=== PATIENT | female | born 1975 | race Caucasian/White ===

== ENCOUNTER 2016-11-03 17:48 | Emergency (ER) | payer OTHER ==
--- NOTE | ~2016-11-03 | CT98 ---
[facility] A Service of [facility] & [facility] RADIOLOGY TEXT RESULTS PATIENT: YINKA HARDING LOCATION: SED : 71 UNIT #: [id number] AGE: [address]: Yamilex Oseguera SEX: F ORDER DR: [id number] [address] [address] [id number] MR#: [id number] Acc #: [id number] NAME: YINKA HARDING : 1975 SEX: F STUDY DATE/TIME: 11/03/2016 18:24 UNIT: SED ROOM: STUDY DESCRIPTION: CT Lumbar Spine Wo Cont Attending Physician: Yamilex Oseguera Pa-C Ordering Physician: Yamilex Oseguera Pa-C Primary Care Physician: Lokesh Ruffin M.D. MEDICAL IMAGING REPORT This report is preliminary unless electronic signature is present. EXAM CT of the lumbar spine 11/03/2016 INDICATIONS 41-year-old female with left lower back pain since last night. Symptoms 3 months, chronically. Bent over and had pain in July. Bulging discs. Pain extending down the left leg. Toes are numb. TECHNIQUE Noncontrast CT of the lumbar spine was performed with sagittal and coronal reformats. This CT exam was performed with one or more of the following radiation dose reduction techniques: automatic exposure control, adjustment of mA and/or kV according to patient size, and iterative reconstruction. COMPARISON STUDIES Correlation is made with CT 07/21/2016 and MRI same date. FINDINGS Included lung bases clear. Aorta demonstrates atherosclerotic change. There is a hyperdense cyst in the anterior mid-pole left kidney measuring 11 mm. Additional smaller hyperdense lesions in the left kidney measure less than a centimeter. These are indeterminate on noncontrast CT. They most likely represent proteinaceous or hemorrhagic cysts. Suggest further evaluation with non-emergent outpatient ultrasound. There is partial visualization of a cyst in the posterior mid-pole right kidney that appears to have calcifications associated with it. This can also be further assessed with ultrasound. Included adrenal glands, pancreas and liver unremarkable. Vertebral body heights and alignment are preserved. No acute fracture. [facility] A Service of [facility] & [facility] RADIOLOGY TEXT RESULTS PATIENT: YINKA HARDING LOCATION: [facility] : [birth year] UNIT #: [id number] AGE: [address]: Yamilex Oseguera SEX: F ORDER DR: There are small disc bulges at L4-5 and L5-S1. There is mild facet arthropathy at L5-S1 and probable at least mild foraminal stenosis at L5-S1 on the left. Axial images demonstrated a disc bulge at L4-5. There is mild impression on the anterior thecal sac but no critical central canal stenosis. At L5-S1, there is a broad-based disc bulge. There is mild mass effect on the anterior thecal sac. No critical central canal stenosis. The patient is status post lior-laminectomy on the right at L5-S1. Given the postoperative changes at L5-S1, the disc bulge could alternatively represent scarring or granulation tissue. IMPRESSION 1. No acute fracture or malalignment. 2. There are disc bulges at L4-5 and L5-S1. No critical central canal stenosis. 3. Probable, at least [id number] foraminal stenosis on the left at L5-S1. 4. Lior-laminectomy change on the right at L5-S1. 5. There are cysts in both kidneys with varying degrees of complexity. These are probably benign but warrant further evaluation with a recent outpatient ultrasound for confirmation of a benign etiology. Dictated by... Major Smart M.D. THIS IS AN ELECTRONICALLY VERIFIED REPORT Major Smart M.D. at 11/04/2016 4:13 PM GEOFFREY/renan TD: 11/03/2016 22:57 JOB #: [id number] MEDICAL IMAGING REPORT Page 1 of 1
[~2016-11-03 17:48] MED LIST: "\\\"CHOLESTEROL MED\\\""; ALEVE PO; AMOXICILLIN875 MG PO; ANTIBIOTIC; ATORVASTATIN CA10 MG PO; AURALGAN AD; BACLOFEN10 MG PO; BACTRIM DS TABL1 TA1 PO; CIPRO PO; GABAPENTIN300 MG PO; IBUPROFEN800 MG PO; KEFLEX500 M1 PO; LINZESS145 MCG PO; LIPITOR PO; LISINOPRIL PO; LORTAB 5-325 M1 EACH PO; MELOXICAM15 MG PO; MOTRIN600 M2 PO; MOTRIN600 MG PO; NAPROSYN500 MG PO; NEURONTIN PO; NO MEDICATIONS; NORFLEX100 M1 PO; PERCOCET 5-3251 TAB PO; PERCOCET PO; PHENERGAN25 MG PO; PREDNISONE10 MG/DOSE PO; PRILOSEC PO; PRILOSEC20 MG DOB; PYRIDIUM PO; ROBAXIN 750750 M1 PO; SUDAFED30 M1 PO; VOLTAREN50 MG PO; VOLTAREN75 MG PO; WELLBUTRIN PO; ZANAFLEX4 M1 PO; ZESTRIL10 M2 PO; ZOFRAN ODT4 MG PO; ZOFRAN ODT4 MG/UDTAB PO
== END 2016-11-03 19:49 | disposition home or self-care (01) ==
LOC: SED 17:48
DX: M51.9 Unspecified thoracic, thoracolumbar and lumbosacral intervertebral disc disorder (principal); I10 Essential (primary) hypertension; K21.9 Gastro-esophageal reflux disease without esophagitis; F17.200 Nicotine dependence, unspecified, uncomplicated; Z88.2 Allergy status to sulfonamides; Z88.0 Allergy status to penicillin; Z88.5 Allergy status to narcotic agent; Z79.899 Other long term (current) drug therapy
CPT/HCPCS: 72131; 96372; 99284; J1040; J1885